=== PATIENT | female | born 1935 | race Asian ===

== ENCOUNTER 2024-04-17 16:30 | Emergency (ER) | payer OTHER, SELFPAY ==
[2024-04-17 16:33] VITALS: BP 173/102
[2024-04-17 16:54] LABS: % Basophils 0.9 % (0-2); % Eosinophils 2.7 % (0-6); % Immature Granulocytes 0.1 % (0-0.5); % Lymphocytes 31.9 % (20.5-51.1); % Monocytes 10.7 % (1.7-9.3); % Neutrophils 53.7 % (42.2-75.2); Absolute Basophils 0.1 10^3/uL (0-0.2); Absolute Eosinophils 0.2 10^3/uL (0-0.7); Absolute Lymphocytes 2.2 10^3/uL (1.2-3.4); Absolute Monocytes 0.7 10^3/uL (0.1-0.6); Absolute Neutrophils 3.7 10^3/uL (1.4-6.5); Hematocrit 39.2 % (37.0-47.0); Hemoglobin 13.1 g/dL (12.0-16.0); Mean Corp Hgb Conc. 33.4 g/dL (33.0-37.0); Mean Corpuscular Hgb 31.2 pg (27.0-31.0); Mean Corpuscular Volume 93.3 fL (81.0-99.0); Mean Platelet Volume 9.4 fL (7.4-10.4); Nucleated Red Blood Cells % 0 %; Platelet Count 167 10^3/uL (130-400); Red Cell Dist. Width 12.1 % (11.5-14.5); White Blood Cell Count 6.9 10^3/uL (4.8-10.8)
[2024-04-17 17:04] LABS: Urine Albumin 3+ (Neg - Trace); Urine Bilirubin Negative (Negative); Urine Character Cloudy (Clear); Urine Color Yellow; Urine Glucose Negative (Negative); Urine Ketone Negative (Negative); Urine Leukocyte 3+ (Negative); Urine Nitrite Negative (Negative); Urine Occult Blood 4+ (Negative); Urine Urobilinogen Negative (Neg - 1+)
[2024-04-17 17:11] LABS: ALT (SGPT) 18 U/L (0-35); AST (SGOT) 35 U/L (14-36); Albumin 4.8 g/dl (3.5-5.0); Alkaline Phosphatase 44 U/L (38-126); Blood Urea Nitrogen 22 mg/dl (7-17); Calcium 9.2 mg/dl (8.4-10.2); Carbon Dioxide 28 mmol/L (22-30); Chloride 91 mmol/L (98-107); Glucose 117 mg/dl (70-99); Sodium 129 mmol/L (135-145); Total Bilirubin 0.9 mg/dl (0.2-1.3); Total Protein 7.7 g/dl (6.3-8.2); eGFR > 60.00
[2024-04-17 17:14] LABS: Urine Squamous Cell 0-2 /LPF (Few); Urine White Cell 90-100 /HPF (0-5)
[2024-04-17 17:15] LABS: Urine Bacteria Few (Negative)
--- NOTE | 2024-04-17 18:51 | ED.GENMED ---
History of Present Illness
General
Chief Complaint: Urinary Symptoms
Source: patient
Exam Limitations: none
Time Seen by Provider: 04/17/24 18:33
Nursing documentation reviewed up to this point in time: agreed with
History of Present Illness
History of Present Illness:
Patient to ED with complaint of urinary frequency and burning. SYmpptoms started 2 days ago Denies fever/chills, n/v/d. Brought to ED by family for eval.
Past History
Past History
ED Past Medical History: Arrthythmia (Atrial fibrillation), Cancer (thyroid), HTN, Hypothyroidism and Other (Diverticulitis, Hep B, Pancreatitis, gastric ulcers)
ED Past Surgical History: Cholecystectomy and Other (hysterectomy)
Social History
Tobacco: Non-smoker
Alcohol: None
Drug: None
Personal:
Living: with family
Employment: Not employed
Family History
Family History: Hypertension
Review of Systems
Review of Systems
Allergies reviewed?: Yes
All Other Systems: ROS reviewed and negative except as documented in HPI and ROS
Constitutional: Reports no symptoms
EENT: Reports no symptoms
Respiratory: Reports no symptoms
Cardiac: Reports no symptoms
ABD/GI: Reports no symptoms
: Reports dysuria, frequency and urgency
Musculoskeletal: Reports no symptoms
Skin: Reports no symptoms
Neurological: Reports no symptoms
Psychiatric: Reports no symptoms
Phy Exam
General Physical Exam
General Presentation: well appearing and no apparent distress
General age: appears stated age
General Skin: warm and dry
General Habitus: normal
General Mental: alert
General Hydration: appears well hydrated
Gastrointestinal Exam
Gastrointestinal Exam: non tender, soft, no organomegaly, non distended and no cva tenderness
Musculoskeletal Exam
Musculoskeletal Exam: full ROM and neuro vasc intact
Skin Exam
Skin Exam: normal color, warm/dry and no rash
Psychiatric Exam
Psychiatric Exam: normal mood/affect
Course
Orders/Labs/Results
Orders:
Orders
04/17/24 16:42
Complete Blood Count/With Diff Urgent
Comprehensive Metabolic Panel Urgent
Urinalysis Reflex To Culture Urgent
Date Specimen was Collected: 04/17/24
Time Specimen was Collected: 16:36
Urine Microscopic Reflex Cult Urgent
Urine Culture Urgent
FORTUNATO Source: U
Specimen Description:
Date Specimen was Collected: 04/17/24
Time Specimen was Collected: 16:36
04/17/24 18:44
Cefuroxime Axetil [Ceftin] 500 mg PO NOW STA
04/17/24 18:45
Phenazopyridine HCl [Pyridium] 200 mg PO NOW STA
Abnormal Lab Results
04/17/24
16:42
MCH 31.2 H pg
(27.0-31.0)
Absolute Monos (auto) 0.7 H 10^3/uL
(0.1-0.6)
Monocytes % 10.7 H %
(1.7-9.3)
Sodium 129 L mmol/L
(135-145)
Chloride 91 L mmol/L
(98-107)
BUN 22 H mg/dl
(7-17)
Glucose 117 H mg/dl
(70-99)
Ur Occult Blood Reflex 4+ A
(Negative)
Leukocyte Esterase Rfl 3+ A
(Negative)
Urine RBC 3-6 A /HPF
(0-2)
Urine WBC (Reflex) 90-100 A /HPF
(0-5)
Urine Bacteria (Reflex) Few A
(Negative)
Urine Albumin (Reflex) 3+ A
(Neg - Trace)
04/17/24 16:42
04/17/24 16:42
Vital Signs
Initial and Last Documented VS:
Initial Vital Signs
Temp Pulse Resp BP Pulse Ox
98.5 F 89 18 173/102 98
04/17/24 16:33 04/17/24 16:33 04/17/24 16:33 04/17/24 16:33 04/17/24 16:33
Last Documented Vital Signs
Temp Pulse Resp BP Pulse Ox
98.5 F 89 18 173/102 98
04/17/24 16:33 04/17/24 16:33 04/17/24 16:33 04/17/24 16:33 04/17/24 16:33
*Critical Care Note
Total Time (30-74mins, 75-104mins- exclusive of procedures): Not Applicable
Update Note
Update Note:
Patient to ED with c/o UTI symptoms x 2 days. No fever/chills, n/v/d. No abd or flank pain. Afebrile in ED. Labs reviewed. WBC normal. VSS. UA reflecting UTI. Started on ceftin in ED. SHe is discharged home. Given instructions on s/s to
return to ED.
ED Attending Note
-
Portions of this chart may have been created with voice recognition software.� Occasional wrong word or��sound alike� substitutions may have occurred due to the inherent limitations of voice recognition software.
Discharge Plan
Departure
Patient Disposition: Home (Routine Discharge)
Date of Disposition: 04/17/24
Time of Disposition: 18:46
Patient with high blood pressure during this ER visit?: No
Condition: Good
Covid-19: Not Applicable
Discharge Problem:
Acute UTI
Instructions: Urinary Tract Infection, Adult (DC)
Prescriptions:
New
cefuroxime axetil 500 mg tablet
500 mg PO BID Qty: 14 0RF
phenazopyridine [Pyridium] 200 mg tablet
200 mg PO TID PRN (Reason: Pain) Qty: 6 0RF
No Action
levothyroxine 25 MCG tablet
25 mcg PO .UD
Patient Comments:
Patient takes 25mcg daily for two days and then on the third day takes 50mcg then takes 25mcg for two days and then 50mcg
warfarin [Jantoven] 2 MG tablet
2 mg PO MOTUWE@2199
acetaminophen [Tylenol Extra Strength] 500 MG tablet
1,000 mg PO Q6HPRN PRN (Reason: mild pain, fever)
alprazolam 0.5 MG tablet
0.5 mg PO HSPRN PRN (Reason: anxiety)
Patient Comments:
Last filled #[phone] on 10/16/2019 at [facility]
erythromycin 1 APPLIC ointment
1 applic LEFT EYE HS
warfarin [Jantoven] 2 MG tablet
4 mg PO SUTHFRSA@2199
diltiazem HCl 120 MG capsule,extended release 24hr
120 mg PO BID
polyvinyl alcohol-povidon(PF) [Refresh Classic (PF)] 10 DROPS dropperette
1 drops BOTH EYES DAILYPRN PRN (Reason: dry eye)
mirtazapine 7.5 MG tablet
7.5 mg PO HS
cholecalciferol (vitamin D3) 1,000 UNITS tablet
1,000 units PO DAILY
denosumab [Prolia] 60 MG/ML syringe
60 mg SQ Q6M
Patient Comments:
Was due for injection in June 2019 - did not receive d/t COVID-19
prednisolone acetate (PF) 5 ML drops,suspension
1 drp BOTH EYES DAILY
levothyroxine 25 MCG tablet
50 mcg PO Q72H
doxycycline hyclate 100 MG capsule
100 mg PO BID Qty: 14 0RF
amoxicillin-pot clavulanate 875-125 mg tablet
1 tab PO BID Qty: 14 0RF
Activity Restrictions/Additional Instructions:
Follow up with your family doctor
Interventions
Interventions:
*Risk Screen - Suicide Last Done: 04/17/24 16:33
*General Assessment Last Done: 04/17/24 16:33
*Neglect/Abuse Screening Last Done: 04/17/24 16:33
*ED- Fall Risk Assessment Last Done: 04/17/24 16:33
*ED COVID-19 Vaccine History Last Done: 04/17/24 16:33
Discharge Date and Time
Print Language: MAORI
[2024-04-17] MEDS: Pyridium 200 MG PO (19:35)
[2024-04-17] MEDS: CEFTIN 500 MG PO (19:35)
== END 2024-04-17 19:40 | disposition home or self-care (01) ==
LOC: EMR 16:30
PROVIDERS: EMERGENCY PHYSICIAN Emergency Medicine; FAMILY PHYSICIAN Internal Medicine
DX: N39.0 Urinary tract infection, site not specified (principal); I48.91 Unspecified atrial fibrillation; I10 Essential (primary) hypertension; E03.9 Hypothyroidism, unspecified; K57.92 Diverticulitis of intestine, part unspecified, without perforation or abscess without bleeding; Z87.11 Personal history of peptic ulcer disease; Z90.49 Acquired absence of other specified parts of digestive tract; Z79.01 Long term (current) use of anticoagulants; Z88.2 Allergy status to sulfonamides
CPT/HCPCS: 99283; 80053; 81003; 81015; 85025; 87077; 87086

== ENCOUNTER → 2025-02-07 09:30 | Outpatient (REF) | payer OTHER, SELFPAY | LOC: RAD 09:30 | PROVIDERS: ATTENDING PHYSICIAN Internal Medicine | DX: M81.0 Age-related osteoporosis without current pathological fracture (principal) | CPT/HCPCS: 77080 ==